=== PATIENT | male | born 1955 | race Caucasian/White ===

== ENCOUNTER 2019-02-21 08:49 | Emergency (ER) | payer OTHER ==
[~2019-02-21] VITALS: Ht 172.7 cm; Wt 90.7 kg
[~2019-02-21 08:49] MED LIST: UNOBMED
[2019-02-21 08:50] VITALS: BP 100/60
--- NOTE | 2019-02-21 08:50 | NUR ---
ED Nurse Note: pt brought by RA from [facility], pt work there. per pt, felt clammy and open eyes on the floor. EMS witnessed 10-[address]. pt denies any seizure history. upon arrival, pt fully awake and follow command. AAO x4. respirations even and non-labored noted. skin warm to touch. 140 BS at the bed side. on lathe turner. denies any pain. seizure padded applied with 2x side rails up. will wait for the further order.
--- NOTE | 2019-02-21 08:59 | Emergency Room Report ---
History of Present Illness General Chief Complaint: Seizure Source: Patient Present Illness HPI Patient is a 63-year-old male brought in by EMS after loss of consciousness. Patient reportedly had become shaky while at work. Patient stated he felt hot and sweaty prior to the onset of loss of consciousness. Patient was noted to have some seizure activity like with leftward gaze and tonic-clonic movements brief in nature when seen by EMS. Patient denies prior history of seizures or cardiac disease. He reports having been taking medications for his blood pressure. He reports having occasional alcohol use. He denies any recent illness. He does report having some chronic knee pain and states he took some Tylenol last night. Allergies: Coded Allergies: No Known Allergies (Unverified , 02/21/19) Patient History Past Medical History: see triage record Reviewed Nursing Documentation: PMH: Agreed; PSxH: Agreed Nursing Documentation-PMH Past Medical History: No History, Except For Hx Hypertension: Yes Hx Seizures: Yes Review of Systems All Other Systems: negative except mentioned in HPI Physical Exam Vital Signs Date Time Temp Pulse Resp B/P (MAP) Pulse Ox O2 Delivery O2 Flow Rate FiO2 02/21/19 08:45 99.5 108 16 129/81 (97) 99 Room Air Sp02 EP Interpretation: reviewed, normal General Appearance: normal inspection, well appearing, no apparent distress, alert, GCS 15, obese Head: atraumatic ENT: normal ENT inspection, hearing grossly normal, normal voice Neck: normal inspection, full range of motion, supple, no bony tend Respiratory: normal inspection, lungs clear, normal breath sounds, no respiratory distress, no retraction, no wheezing Cardiovascular #1: regular rate, rhythm, no edema Gastrointestinal: normal inspection, normal bowel sounds, non tender, soft, no guarding, no hernia Genitourinary: no CVA tenderness Musculoskeletal: normal inspection, back normal, normal range of motion Neurologic: normal inspection, alert, oriented x3, responsive, solutions consultant III-XII nml as tested, motor strength/tone normal, DTRs symmetric, speech normal Psychiatric: normal inspection, judgement/insight normal, mood/affect normal Skin: normal color, rash Medical Decision Making Diagnostic Impression: Primary Impression: Syncope, convulsive Additional Impression: Tachycardia ER Course Patient presented for loss of consciousness. Differential diagnosis include was not limited to cardiac arrhythmia, alcohol withdrawal, seizure, among others.Patient was noted to be persistently tachycardic while in the emergency department. EKG interpreted by me showed sinus tachycardia 108 with an incomplete right bundle branch block without acute ST or T wave changes.Patient was observed in the emergency department was noted to have increase in his tachycardia over time.Despite IV fluids. Patient is noted to be persistently tachycardic. Does appear to be hemodynamically stable. Patient was noted to have some slight elevation of his blood sugar. His laboratory testing showed minimally elevated white count with a normal lactic acid level. Patient was discussed with from [facility]. Patient be transferred to [facility] for further evaluation of loss of consciousness. Patient appears to be stable for transfer and at the time of transfer patient has a normal mental status. He was advised not to drive a motor vehicle or operate heavy machinery until cleared by his physician. Labs Test 02/21/19 09:10 02/21/19 09:40 02/21/19 10:10 White Blood Count 11.8 K/UL (4.8-10.8) Red Blood Count 4.87 M/UL (4.70-6.10) Hemoglobin 15.4 G/DL (14.2-18.0) Hematocrit 46.1 % (42.0-52.0) Mean Corpuscular Volume 95 FL (80-99) Mean Corpuscular Hemoglobin 31.6 PG (27.0-31.0) Mean Corpuscular Hemoglobin Concent 33.4 G/DL (32.0-36.0) Red Cell Distribution Width 12.3 % (11.6-14.8) Platelet Count 211 K/UL (150-450) Mean Platelet Volume 6.4 FL (6.5-10.1) Neutrophils (%) (Auto) % (45.0-75.0) Lymphocytes (%) (Auto) % (20.0-45.0) Monocytes (%) (Auto) % (1.0-10.0) Eosinophils (%) (Auto) % (0.0-3.0) Basophils (%) (Auto) % (0.0-2.0) Differential Total Cells Counted 100 Neutrophils % (Manual) 76 % (45-75) Lymphocytes % (Manual) 10 % (20-45) Monocytes % (Manual) 13 % (1-10) Eosinophils % (Manual) 0 % (0-3) Basophils % (Manual) 1 % (0-2) Band Neutrophils 0 % (0-8) Platelet Estimate Adequate Platelet Morphology Normal Red Blood Cell Morphology Normal Sodium Level 133 MMOL/L (136-145) Potassium Level 4.4 MMOL/L (3.5-5.1) Chloride Level 98 MMOL/L (98-107) Carbon Dioxide Level 28 MMOL/L (21-32) Anion Gap 7 mmol/L (5-15) Blood Urea Nitrogen 18 mg/dL (7-18) Creatinine 1.1 MG/DL (0.55-1.30) Estimat Glomerular Filtration Rate > 60 mL/min (>60) Glucose Level 146 MG/DL (74-106) Calcium Level 10.5 MG/DL (8.5-10.1) Total Bilirubin 0.5 MG/DL (0.2-1.0) Aspartate Amino Transf (AST/SGOT) 24 U/L (15-37) Alanine Aminotransferase (ALT/SGPT) 26 U/L (12-78) Alkaline Phosphatase 56 U/L (46-116) Troponin I 0.000 ng/mL (0.000-0.056) Total Protein 7.8 G/DL (6.4-8.2) Albumin 3.8 G/DL (3.4-5.0) Globulin 4.0 g/dL Albumin/Globulin Ratio 0.9 (1.0-2.7) Lipase 125 U/L (73-393) Serum Alcohol < 3 mg/dL Lactic Acid Level 1.90 mmol/L (0.4-2.0) EKG Diagnostic Results Rate: tachycardiac Rhythm: NSR ST Segments: no acute changes Last Vital Signs Date Time Temp Pulse Resp B/P (MAP) Pulse Ox O2 Delivery O2 Flow Rate FiO2 02/21/19 08:45 99.5 108 16 129/81 (97) 99 Room Air Status: unchanged Disposition: XFER SHT-TRM HOSP Condition: Serious Malcolm Argueta MD Feb 21, 2019 08:59
[2019-02-21] MEDS ORDERED: LORazepam Inj 2mg/ml 1ml IV ONE (09:00)
[2019-02-21 09:30] LABS: HEMATOCRIT 46.1 % (42.0-52.0); HEMOGLOBIN 15.4 G/DL (14.2-18.0); MEAN CORPUSCULAR VOLUME 95 FL (80-99); PLATELET COUNT 211 K/UL (150-450); RED BLOOD COUNT 4.87 M/UL (4.70-6.10); RED CELL DISTRIBUTION WIDTH 12.3 % (11.6-14.8); WHITE BLOOD COUNT 11.8 K/UL (4.8-10.8)
[2019-02-21 09:40] LABS: ANION GAP 7 mmol/L (5-15); BLOOD UREA NITROGEN 18 mg/dL (7-18); CALCIUM 10.5 MG/DL (8.5-10.1); CARBON DIOXIDE 28 MMOL/L (21-32); CHLORIDE 98 MMOL/L (98-107); CREATININE 1.1 MG/DL (0.55-1.30); POTASSIUM 4.4 MMOL/L (3.5-5.1); SODIUM 133 MMOL/L (136-145)
[2019-02-21 09:45] LABS: ALANINE AMINOTRANSFERASE 26 U/L (12-78); ALBUMIN 3.8 G/DL (3.4-5.0); ALBUMIN/GLOBULIN RATIO 0.9 (1.0-2.7); ALKALINE PHOSPHATASE 56 U/L (46-116); ASPARTATE AMINO TRANSFERASE 24 U/L (15-37); BILIRUBIN,TOTAL 0.5 MG/DL (0.2-1.0)
[2019-02-21 10:00] VITALS: BP 105/69
--- NOTE | 2019-02-21 10:00 | NUR ---
ED Nurse Note: pt lying in bed with eye closed. no facial grimacing or moaning noted. at the bed side.
[2019-02-21] MEDS ORDERED: LISINOPRIL5 MG ORAL (10:12)
[2019-02-21 10:34] LABS: APPEARANCE,URINE CLEAR; BILIRUBIN, URINE NEGATIVE (NEGATIVE); COLOR,URINE PALE YELLOW; GLUCOSE, URINE (UA) NEGATIVE (NEGATIVE); KETONES,URINE NEGATIVE (NEGATIVE); LEUKOCYTE ESTERASE ,URINE NEGATIVE (NEGATIVE); NITRITE,URINE NEGATIVE (NEGATIVE); PH,URINE 6.5 (4.5-8.0); PROTEIN,URINE 2+ (NEGATIVE); UROBILINOGEN,URINE NORMAL MG/DL (0.0-1.0)
[2019-02-21 11:00] VITALS: BP 117/68
[2019-02-21 12:05] VITALS: BP 119/74
--- NOTE | 2019-02-21 12:06 | NUR ---
ED Nurse Note: [facility].
--- NOTE | 2019-02-21 12:07 | NUR ---
ED Nurse Note: pt transferred to ED by [facility] ambul[facility] unit #[id number].
== END 2019-02-21 12:11 | disposition short-term general hospital (02) ==
LOC: EDBD 08:49 → EMR 10:00 → EDBEDREQ 10:46 → EMR 12:11
DX: R55 Syncope and collapse (principal); R56.9 Unspecified convulsions; R00.0 Tachycardia, unspecified; I10 Essential (primary) hypertension; I45.10 Unspecified right bundle-branch block; R73.9 Hyperglycemia, unspecified
CPT/HCPCS: 36415; 80053; 80307; 81001; 82962; 83605; 83690; 84484; 85007; 85025; 93005; 96374; 99285; G0480; J7040; 80329